=== PATIENT | female | born 1960 | race African-American/Black ===

== ENCOUNTER 2017-08-24 10:42 | Inpatient (IN) ==
[2017-08-24] MEDS ORDERED: INSULIN REGULAR 100 UNIT/ML IV STA (11:26)
[2017-08-24] MEDS ORDERED: SODIUM CHLORIDE 0.9% 1,000 ML IV STA (11:26)
[2017-08-24] MEDS ORDERED: INSULIN REGULAR 100 UNIT/ML ONE (11:29)
[2017-08-24 11:34] LABS: Basophils # 0.1 10*3/uL (0.0-0.2); Basophils % 0.3 % (0.0-0.8); Hemoglobin 16.5 GM/DL (12.0-16.0); Immature Granulocytes % 0.8 %; Immature Granulocytes Absolute 0.18 #; Lymphocytes # 2.5 10*3/uL (1.4-4.0); Lymphocytes % 11.1 % (21.3-54.2); Mean Corpuscular HGB Conc 31.1 GM/DL (32-36); Mean Corpuscular Hemoglobin 29 PG (27-34); Mean Corpuscular Volume 92.5 FL (87-102); Monocytes # 2.3 10*3/uL (0.11-0.8); Neutrophils # 17.8 10*3/uL (1.4-7.4); Neutrophils % 77.8 % (38.7-73.9); Platelet Count 234 T/CUMM (130-400); Red Blood Count 5.73 MC/CUMM (3.8-5.5); Red Cell Distribution Width 12.4 % (9.3-17.3); White Blood Count 22.9 T/CUMM (4-12)
[2017-08-24 11:41] LABS: PT Patient Result 10.8 SECS
[2017-08-24 11:56] LABS: ABG Base Excess -29.1 MMOL/L (-2.5-2.5); ABG HCO3 1.8 MMOL/L (20-26); ABG Oxygen Saturation 98.9 % (95-100); ABG PO2 190.4 MM HG (80-95); ABG TCO2 2.1 MMOL/L (23-27)
[2017-08-24 11:59] LABS: ABG PH 6.926 (7.35-7.45)
[2017-08-24] MEDS ORDERED: SODIUM BICARBONATE 50 MEQ/50 ML VIAL IV STA ×2 (11:59→15:18)
[2017-08-24] MEDS ORDERED: INSULIN REGULAR DRIP 100 ML IV PRN (12:00)
[2017-08-24 12:01] LABS: Band Neutrophils 4 % (0-10); Hypochromasia Slight; Lymphocytes 14 % (20-55); Platelet Estimate Adequate; Segmented Neutrophils 72 % (50-85); Total Cells Counted 100
[2017-08-24 12:07] LABS: Alanine Aminotransferase 27 U/L (13-56); Albumin 3.6 G/DL (3.4-5.0); Alkaline Phosphatase 235 U/L (45-117); Aspartate Amino Transferase 33 U/L (0-37); Blood Urea Nitrogen 26 MG/DL (7-18); CKMB % 9.4 %; Calcium 9.9 MG/DL (8.5-10.1); Osmolality,Calculated 287.1 MOS/KG (273-304); Potassium 5.2 MMOL/L (3.5-5.1); Sodium 128 MMOL/L (136-145); Thyroid Stimulating Hormone < 0.005 uIU/ml (0.358-3.74); Total Protein 8.1 G/DL (6.4-8.3)
[2017-08-24] MEDS ORDERED: SODIUM BICARBONATE 50 MEQ/50 ML SYRINGE IV ONE ×2 (12:09→15:37)
[2017-08-24 12:12] LABS: Glucose 575 MG/DL (74-106)
[2017-08-24 12:16] LABS: Barbiturates Screen,Urine Negative (Negative); Benzodiazepines Screen,Urine Negative (Negative); Cannabinoid Screen,Urine Negative (Negative); Opiate Screen,Urine Negative (Negative); Phencyclidine Screen,Urine Negative (Negative)
[2017-08-24 12:24] LABS: Ammonia 131 UMOL/L (11-32)
[2017-08-24 12:30] LABS: Amorphous Crystals,Urine Occasional /HPF (Few); Apearance,Urine CLOUDY (Clear); Bilirubin,Urine Negative (Negative); Blood, Urine Moderate mg/dL (Negative); Glucose,Urine (UA) >=500 mg/dL (Negative); Ketones,Urine 80 mg/dL (Negative); Lactic Acid 2.3 MMOL/L (0.4-2.0); Mucus,Urine Occasional /LPF (Occasional); Nitrite,Urine Negative (Negative); Protein,Urine 100 MG/DL; RBC,Urine 2 /HPF (0-4); Squamous Epithelial Cell,Urine Occasional /HPF (0-10); Urine Color Yellow (Yellow); Urine Specific Gravity 1.012 (1.001-1.035); Urine Urobilinogen < 2.0 EU/DL (0.2-1.0); WBC,Urine 1 /HPF (0-6)
[2017-08-24 12:39] LABS: Sedimentation Rate-Westergren 5 MM/HR (0-30)
[2017-08-24] MEDS ORDERED: ALBUTEROL 2.5 MG/3 ML NEB RESP TX PRN (13:16)
[2017-08-24] MEDS ORDERED: SODIUM PHOSPHATE INJ 13.6 MMOL in SODIUM CHLORIDE 0.9% 250 ML IV PRN (13:25)
[2017-08-24] MEDS ORDERED: SODIUM BICARB INJ 100 MEQ in STERILE WATER INJ 400 ML IV PRN (13:25)
[2017-08-24] MEDS ORDERED: DEXTROSE 50% 25 GM/50 ML VIAL IV PRN ×2 (13:25)
[2017-08-24] MEDS ORDERED: LACTULOSE 160 GM/240 ML BOTTLE RECTAL ONE (14:29)
[2017-08-24 14:33] LABS: Calcium 8.9 MG/DL (8.5-10.1)
[2017-08-24] MEDS: PANTOPRAZOLE 40 MG VIAL IV SCH (15:00)
[2017-08-24] MEDS: INSULIN REGULAR DRIP 100 ML IV SCH ×2 (15:03→21:23)
[2017-08-24 15:13] LABS: ABG Base Excess -27.5 MMOL/L (-2.5-2.5); ABG HCO3 7.1 MMOL/L (20-26); ABG Oxygen Saturation 98.3 % (95-100)
[2017-08-24 15:15] LABS: ABG PCO2 10.8 MM HG (35-48); ABG PH 7.078 (7.35-7.45); ABG TCO2 2.9 MMOL/L (23-27)
[2017-08-24] MEDS ORDERED: LACTULOSE 20 GM/30 ML UDCUP PO STA (15:19)
[2017-08-24] MEDS ORDERED: DILTIAZEM 100 MG VIAL.ADD IV ONE (15:49)
[2017-08-24] MEDS: DILTIAZEM INJ 100 MG in SODIUM CHLORIDE 0.9% 100 ML IV SCH (16:07)
[2017-08-24] MEDS ORDERED: DILTIAZEM 50 MG/10 ML VIAL IV STA (16:10)
[2017-08-24 17:51] LABS: ABG Base Excess -21.8 MMOL/L (-2.5-2.5); ABG HCO3 9.6 MMOL/L (20-26); ABG Oxygen Saturation 98.7 % (95-100); ABG PH 7.264 (7.35-7.45)
[2017-08-24 18:04] LABS: Calcium 8.5 MG/DL (8.5-10.1); Osmolality,Calculated 298.4 MOS/KG (273-304); Potassium 3.6 MMOL/L (3.5-5.1)
[2017-08-24 18:18] LABS: CKMB % 8.3 %; Troponin I Only 0.115 NG/ML (0.00-0.045)
[2017-08-24 19:45] LABS: ABG Base Excess -20.6 MMOL/L (-2.5-2.5); ABG HCO3 10.2 MMOL/L (20-26); ABG Oxygen Saturation 98.7 % (95-100); ABG PH 7.295 (7.35-7.45); ABG TCO2 4.4 MMOL/L (23-27); Allen Test Positive; Pt O2 Delivery Device Room Air
[2017-08-24 19:48] LABS: ABG PCO2 10.3 MM HG (35-48)
[2017-08-24] MEDS: SODIUM CHLORIDE 0.45% 1,000 ML IV SCH ×2 (21:45→23:09)
[2017-08-24 22:15] LABS: Osmolality,Calculated 296.3 MOS/KG (273-304); Potassium 3.4 MMOL/L (3.5-5.1)
[2017-08-25] MEDS: DEXTROSE 5% NACL 0.45% 1,000 ML IV SCH ×2 (00:26→07:38)
[2017-08-25] MEDS: POTASSIUM CHLORIDE RIDER 10 MEQ in PREMIX 1 EACH IV PRN ×3 (00:28→04:15)
[2017-08-25 00:49] LABS: CKMB % 9.4 %
[2017-08-25 00:52] LABS: Troponin I Only 0.106 NG/ML (0.00-0.045)
[2017-08-25] MEDS ORDERED: ACETAMINOPHEN 650 MG SUPP RECTAL PRN (04:33)
[2017-08-25 05:18] LABS: Calcium 9.2 MG/DL (8.5-10.1); Osmolality,Calculated 295.1 MOS/KG (273-304); Potassium 3.3 MMOL/L (3.5-5.1)
[2017-08-25 05:26] LABS: Lactic Acid 1.6 MMOL/L (0.4-2.0)
[2017-08-25 06:15] LABS: Basophils % 0.1 % (0.0-0.8); Hematocrit 39.6 VOL% (35.7-47.0); Hemoglobin 13.8 GM/DL (12.0-16.0); Immature Granulocytes % 0.3 %; Immature Granulocytes Absolute 0.03 #; Lymphocytes # 1.2 10*3/uL (1.4-4.0); Lymphocytes % 13.6 % (21.3-54.2); Mean Corpuscular HGB Conc 34.8 GM/DL (32-36); Mean Corpuscular Hemoglobin 29 PG (27-34); Mean Corpuscular Volume 81.8 FL (87-102); Mean Platelet Volume 11.4 FL (9.6-12.0); Monocytes # 1.4 10*3/uL (0.11-0.8); Monocytes % 15.2 % (1.7-12.7); Neutrophils # 6.5 10*3/uL (1.4-7.4); Neutrophils % 70.8 % (38.7-73.9); Platelet Count 132 T/CUMM (130-400); Red Blood Count 4.84 MC/CUMM (3.8-5.5); Red Cell Distribution Width 12.8 % (9.3-17.3); White Blood Count 9.1 T/CUMM (4-12)
[2017-08-25] MEDS ORDERED: SODIUM CHLORIDE 0.45% 1,000 ML IV SCH (06:25)
[2017-08-25 11:21] LABS: Calcium 9.1 MG/DL (8.5-10.1); Potassium 3.4 MMOL/L (3.5-5.1)
[2017-08-25] MEDS: SODIUM CHLORIDE 0.9% 1,000 ML IV SCH ×2 (11:47→20:13)
[2017-08-25] MEDS: POTASSIUM CHLORIDE 20 MEQ TABLET PO PRN ×3 (11:52→16:39)
[2017-08-25] MEDS: INSULIN REGULAR 100 UNIT/ML SUBCUT SCH ×3 (12:28→23:52)
[2017-08-25 12:46] LABS: Free T4 (Free Thyroxine) 4.49 NG/DL (0.76-1.46); Thyroid Stimulating Hormone < 0.005 uIU/ml (0.358-3.74)
[2017-08-25] MEDS: METOPROLOL SUCCINATE XL 25 MG TABLET PO SCH (13:35)
[2017-08-25] MEDS: PANTOPRAZOLE 40 MG VIAL IV SCH (13:36)
[2017-08-25 16:50] LABS: Calcium 9.4 MG/DL (8.5-10.1); Osmolality,Calculated 292.1 MOS/KG (273-304); Potassium 3.6 MMOL/L (3.5-5.1)
[2017-08-25] MEDS: DILTIAZEM INJ 100 MG in SODIUM CHLORIDE 0.9% 100 ML IV SCH (17:41)
[2017-08-26 01:24] LABS: Calcium 9.8 MG/DL (8.5-10.1); Osmolality,Calculated 295.7 MOS/KG (273-304)
[2017-08-26] MEDS: SODIUM CHLORIDE 0.9% 1,000 ML IV SCH ×3 (03:31→20:56)
[2017-08-26] MEDS: INSULIN REGULAR 100 UNIT/ML SUBCUT SCH ×3 (05:58→18:18)
[2017-08-26 07:43] LABS: Basophils % 0.2 % (0.0-0.8); Hematocrit 32.9 VOL% (35.7-47.0); Immature Granulocytes % 0.2 %; Immature Granulocytes Absolute 0.01 #; Mean Platelet Volume 11.2 FL (9.6-12.0)
[2017-08-26 07:45] LABS: Lymphocytes # 2.3 10*3/uL (1.4-4.0); Lymphocytes % 40.2 % (21.3-54.2); Mean Corpuscular Hemoglobin 29 PG (27-34); Mean Corpuscular Volume 83.9 FL (87-102); Monocytes # 0.9 10*3/uL (0.11-0.8); Monocytes % 15.2 % (1.7-12.7); Neutrophils # 2.5 10*3/uL (1.4-7.4); Neutrophils % 44.2 % (38.7-73.9); Platelet Count 107 T/CUMM (130-400); Red Blood Count 3.92 MC/CUMM (3.8-5.5); Red Cell Distribution Width 13.7 % (9.3-17.3)
[2017-08-26 07:47] LABS: Hemoglobin 11.2 GM/DL (12.0-16.0); White Blood Count 5.7 T/CUMM (4-12)
[2017-08-26 08:13] LABS: Calcium 9.7 MG/DL (8.5-10.1); Osmolality,Calculated 292.6 MOS/KG (273-304); Potassium 3.1 MMOL/L (3.5-5.1)
[2017-08-26] MEDS: METOPROLOL SUCCINATE XL 25 MG TABLET PO SCH (10:51)
[2017-08-26] MEDS: PANTOPRAZOLE 40 MG VIAL IV SCH (15:03)
[2017-08-26] MEDS ORDERED: GLUCAGON 1 MG VIAL IM PRN (17:19)
[2017-08-26] MEDS: APIXABAN 5 MG TABLET PO SCH ×2 (18:18→20:53)
[2017-08-26] MEDS: IBUPROFEN 800 MG TABLET PO PRN (21:05)
[2017-08-26] MEDS: POTASSIUM CHLORIDE 20 MEQ TABLET PO PRN (22:25)
[2017-08-27] MEDS: INSULIN REGULAR 100 UNIT/ML SUBCUT SCH ×4 (00:01→18:19)
[2017-08-27] MEDS: POTASSIUM CHLORIDE 20 MEQ TABLET PO PRN ×3 (01:15→06:19)
[2017-08-27 04:22] LABS: Hematocrit 29.6 VOL% (35.7-47.0); Hemoglobin 10.2 GM/DL (12.0-16.0); Immature Granulocytes % 0.2 %; Immature Granulocytes Absolute 0.01 #; Lymphocytes # 2.7 10*3/uL (1.4-4.0); Lymphocytes % 58.8 % (21.3-54.2); Mean Corpuscular HGB Conc 34.5 GM/DL (32-36); Mean Corpuscular Hemoglobin 29 PG (27-34); Mean Corpuscular Volume 83.9 FL (87-102); Mean Platelet Volume 12.2 FL (9.6-12.0); Monocytes # 0.7 10*3/uL (0.11-0.8); Monocytes % 14.1 % (1.7-12.7); Neutrophils # 1.2 10*3/uL (1.4-7.4); Neutrophils % 26.9 % (38.7-73.9); Red Blood Count 3.53 MC/CUMM (3.8-5.5); Red Cell Distribution Width 13.7 % (9.3-17.3); White Blood Count 4.6 T/CUMM (4-12)
[2017-08-27 04:28] LABS: Platelet Count 98 T/CUMM (130-400)
[2017-08-27 04:39] LABS: Calcium 8.5 MG/DL (8.5-10.1); Potassium 3.4 MMOL/L (3.5-5.1)
[2017-08-27 05:03] LABS: Band Neutrophils 1 % (0-10); Hypochromasia 1+; Lymphocytes 56 % (20-55); Platelet Estimate Decreased; Segmented Neutrophils 31 % (50-85); Total Cells Counted 100
[2017-08-27] MEDS: SODIUM CHLORIDE 0.9% 1,000 ML IV SCH ×4 (06:18→21:09)
[2017-08-27] MEDS: APIXABAN 5 MG TABLET PO SCH ×2 (09:46→21:10)
[2017-08-27] MEDS: METOPROLOL SUCCINATE XL 25 MG TABLET PO SCH (09:46)
[2017-08-27] MEDS: PANTOPRAZOLE 40 MG VIAL IV SCH (16:51)
[2017-08-28] MEDS: INSULIN REGULAR 100 UNIT/ML SUBCUT SCH ×3 (01:07→11:38)
[2017-08-28] MEDS: SODIUM CHLORIDE 0.9% 1,000 ML IV SCH (06:07)
[2017-08-28 06:23] LABS: Hemoglobin 11.7 GM/DL (12.0-16.0); Lymphocytes # 2.9 10*3/uL (1.4-4.0); Lymphocytes % 65.2 % (21.3-54.2); Mean Corpuscular HGB Conc 33.4 GM/DL (32-36); Mean Corpuscular Hemoglobin 28 PG (27-34); Mean Corpuscular Volume 84.7 FL (87-102); Mean Platelet Volume 12.4 FL (9.6-12.0); Monocytes # 0.6 10*3/uL (0.11-0.8); Monocytes % 12.5 % (1.7-12.7); Neutrophils % 22.3 % (38.7-73.9); Platelet Count 103 T/CUMM (130-400); Red Blood Count 4.13 MC/CUMM (3.8-5.5); Red Cell Distribution Width 13.7 % (9.3-17.3); White Blood Count 4.4 T/CUMM (4-12)
[2017-08-28 06:53] LABS: Lymphocytes 67 % (20-55); Platelet Estimate Decreased; Segmented Neutrophils 30 % (50-85); Total Cells Counted 100
[2017-08-28 06:56] LABS: Calcium 9.2 MG/DL (8.5-10.1); Osmolality,Calculated 291.7 MOS/KG (273-304); Potassium 3.3 MMOL/L (3.5-5.1)
[2017-08-28 07:00] LABS: Alanine Aminotransferase 23 U/L (13-56); Albumin 2.6 G/DL (3.4-5.0); Alkaline Phosphatase 126 U/L (45-117); Aspartate Amino Transferase 23 U/L (0-37); Bilirubin,Direct < 0.100 MG/DL (0.0-0.20); Bilirubin,Indirect 0.4 MG/DL (0.0-1.0); Total Protein 5.7 G/DL (6.4-8.3)
[2017-08-28] MEDS: METOPROLOL SUCCINATE XL 25 MG TABLET PO SCH (08:33)
[2017-08-28] MEDS: APIXABAN 5 MG TABLET PO SCH (08:33)
[2017-08-28] MEDS: POTASSIUM CHLORIDE 20 MEQ TABLET PO PRN ×3 (08:33→12:37)
[2017-08-28] MEDS: IBUPROFEN 800 MG TABLET PO PRN (09:42)
[2017-08-28 11:36] VITALS: BP 97/65
[2017-08-28] MEDS: PANTOPRAZOLE 40 MG VIAL IV SCH (12:37)
== END 2017-08-28 13:10 | disposition home or self-care (01) | DRG 637 ==
LOC: N.ED 10:42 → N.EDINP 12:19 → N.CC 20:58 → N.2E 08-27 17:47

== ENCOUNTER 2018-03-26 10:15 | Observation (INO) ==
[2018-03-26 11:31] LABS: Basophils % 0.2 % (0.0-0.8); Hematocrit 41.6 VOL% (35.7-47.0); Hemoglobin 13.7 GM/DL (12.0-16.0); Immature Granulocytes % 0.2 %; Immature Granulocytes Absolute 0.01 #; Lymphocytes # 2.1 10*3/uL (1.4-4.0); Lymphocytes % 41.9 % (21.3-54.2); Mean Corpuscular HGB Conc 32.9 GM/DL (32-36); Mean Corpuscular Hemoglobin 30 PG (27-34); Mean Corpuscular Volume 90.4 FL (87-102); Mean Platelet Volume 12.2 FL (9.6-12.0); Monocytes # 0.5 10*3/uL (0.11-0.8); Monocytes % 10.5 % (1.7-12.7); Neutrophils # 2.4 10*3/uL (1.4-7.4); Neutrophils % 47.2 % (38.7-73.9); Platelet Count 167 T/CUMM (130-400); White Blood Count 5.1 T/CUMM (4-12)
[2018-03-26] MEDS ORDERED: SODIUM CHLORIDE 0.9% 1,000 ML IV STA (11:52)
[2018-03-26] MEDS ORDERED: ONDANSETRON 4 MG/2 ML VIAL IV STA (11:52)
[2018-03-26 11:54] LABS: Alanine Aminotransferase 33 U/L (13-56); Albumin 3.2 G/DL (3.4-5.0); Alkaline Phosphatase 181 U/L (45-117); Aspartate Amino Transferase 23 U/L (0-37); Bilirubin,Total < 0.39 MG/DL (0.2-1.0); Blood Urea Nitrogen 14 MG/DL (7-18); Calcium 8.2 MG/DL (8.5-10.1); Osmolality,Calculated 287.7 MOS/KG (273-304); Sodium 131 MMOL/L (136-145); Total Protein 6.6 G/DL (6.4-8.3)
[2018-03-26 11:56] LABS: Glucose 542 MG/DL (74-106)
[2018-03-26] MEDS ORDERED: INSULIN REGULAR 100 UNIT/ML IV STA (11:56)
[2018-03-26 12:03] LABS: Basophils % 0.2 % (0.0-0.8); Hematocrit 41.5 VOL% (35.7-47.0); Hemoglobin 13.5 GM/DL (12.0-16.0); Immature Granulocytes % 0.2 %; Immature Granulocytes Absolute 0.01 #; Lymphocytes # 2.1 10*3/uL (1.4-4.0); Lymphocytes % 41.8 % (21.3-54.2); Mean Corpuscular HGB Conc 32.5 GM/DL (32-36); Mean Corpuscular Hemoglobin 30 PG (27-34); Mean Corpuscular Volume 90.8 FL (87-102); Mean Platelet Volume 12.4 FL (9.6-12.0); Monocytes # 0.5 10*3/uL (0.11-0.8); Monocytes % 10.6 % (1.7-12.7); Neutrophils # 2.4 10*3/uL (1.4-7.4); Neutrophils % 47.2 % (38.7-73.9); Platelet Count 171 T/CUMM (130-400); Red Blood Count 4.57 MC/CUMM (3.8-5.5); Red Cell Distribution Width 13.2 % (9.3-17.3)
[2018-03-26 12:26] LABS: Apearance,Urine CLEAR (Clear); Bilirubin,Urine Negative (Negative); Blood, Urine Negative (Negative); Glucose,Urine (UA) >=500 mg/dL (Negative); Ketones,Urine 20 mg/dL (Negative); Mucus,Urine Occasional /LPF (Occasional); Nitrite,Urine Negative (Negative); Protein,Urine Negative; RBC,Urine <1 /HPF (0-4); Urine Color Straw (Yellow); Urine Specific Gravity 1.032 (1.001-1.035); Urine Urobilinogen < 2.0 EU/DL (0.2-1.0)
[2018-03-26 12:34] LABS: ABG Base Excess -0.4 MMOL/L (-2.5-2.5); ABG HCO3 24.1 MMOL/L (20-26); ABG PCO2 35.8 MM HG (35-48); ABG PH 7.425 (7.35-7.45); ABG PO2 97.8 MM HG (80-95); ABG TCO2 20.5 MMOL/L (23-27); Allen Test Positive; Pt O2 Delivery Device Room Air
[2018-03-26] MEDS ORDERED: ACETAMINOPHEN 325 MG TABLET PO PRN (12:42)
[2018-03-26] MEDS ORDERED: ONDANSETRON 4 MG/2 ML VIAL IV PRN (12:42)
[2018-03-26] MEDS ORDERED: DEXTROSE 50% 25 GM/50 ML VIAL IV PRN (12:42)
[2018-03-26] MEDS ORDERED: GLUCAGON 1 MG VIAL IM PRN (12:42)
[2018-03-26 12:55] LABS: Barbiturates Screen,Urine Negative (Negative); Benzodiazepines Screen,Urine Negative (Negative); Cannabinoid Screen,Urine Negative (Negative); Opiate Screen,Urine Negative (Negative); Phencyclidine Screen,Urine Negative (Negative)
[2018-03-26] MEDS ORDERED: SODIUM CHLORIDE 0.9% 1,000 ML IV SCH (13:00)
[2018-03-26] MEDS ORDERED: INFLUENZA VIRUS VACCINE 0.5 ML SYRINGE IM ONE (15:18)
[2018-03-26] MEDS ORDERED: PNEUMOCOCCAL VACCINE (23 VALENT) 0.5 ML VIAL IM ONE (15:18)
[2018-03-26] MEDS: INSULIN REGULAR 100 UNIT/ML SUBCUT SCH ×3 (15:21→21:37)
[2018-03-26] MEDS ORDERED: INSULIN NPH/REGULAR 70/30 100 UNIT/ML SUBCUT SCH (17:30)
[2018-03-26] MEDS: SODIUM CHLORIDE 0.9% 1,000 ML IV SCH (17:51)
[2018-03-27] MEDS: INSULIN REGULAR 100 UNIT/ML SUBCUT SCH ×4 (01:15→13:47)
[2018-03-27] MEDS: SODIUM CHLORIDE 0.9% 1,000 ML IV SCH (01:18)
[2018-03-27 05:46] LABS: Basophils % 0.1 % (0.0-0.8); Hematocrit 37.2 VOL% (35.7-47.0); Hemoglobin 11.9 GM/DL (12.0-16.0); Immature Granulocytes % 0.3 %; Immature Granulocytes Absolute 0.02 #; Lymphocytes # 3.8 10*3/uL (1.4-4.0); Lymphocytes % 54.8 % (21.3-54.2); Mean Corpuscular Hemoglobin 29 PG (27-34); Mean Corpuscular Volume 91.2 FL (87-102); Mean Platelet Volume 12.1 FL (9.6-12.0); Monocytes # 0.7 10*3/uL (0.11-0.8); Monocytes % 9.6 % (1.7-12.7); Neutrophils # 2.4 10*3/uL (1.4-7.4); Neutrophils % 35.2 % (38.7-73.9); Platelet Count 140 T/CUMM (130-400); Red Blood Count 4.08 MC/CUMM (3.8-5.5); Red Cell Distribution Width 13.2 % (9.3-17.3); White Blood Count 6.9 T/CUMM (4-12)
[2018-03-27 06:06] LABS: Calcium 8.2 MG/DL (8.5-10.1); Osmolality,Calculated 280.5 MOS/KG (273-304); Potassium 3.6 MMOL/L (3.5-5.1)
[2018-03-27 06:16] LABS: Eosinophils 3 % (0-10); Lymphocytes 49 % (20-55); Segmented Neutrophils 41 % (50-85); Total Cells Counted 100
[2018-03-27 06:17] LABS: Hypochromasia 2+; Platelet Estimate Decreased
[2018-03-27] MEDS ORDERED: INSULIN NPH/REGULAR 70/30 100 UNIT/ML SUBCUT SCH (07:30)
[2018-03-27] MEDS ORDERED: PANTOPRAZOLE 40 MG TABLET PO SCH (09:00)
[2018-03-27] MEDS: METOPROLOL SUCCINATE XL 25 MG TABLET PO SCH ×2 (10:02→14:04)
[2018-03-27 12:59] VITALS: BP 157/77
[2018-03-27 14:38] LABS: Apearance,Urine CLEAR (Clear); Bilirubin,Urine Negative (Negative); Blood, Urine Negative (Negative); Glucose,Urine (UA) 50 mg/dL (Negative); Hyaline Casts,Urine 1 /LPF (0-3); Ketones,Urine Negative (Negative); Mucus,Urine Occasional /LPF (Occasional); Nitrite,Urine Negative (Negative); Protein,Urine 30 MG/DL; RBC,Urine 2 /HPF (0-4); Squamous Epithelial Cell,Urine Occasional /HPF (0-10); Urine Color Yellow (Yellow); Urine Specific Gravity 1.014 (1.001-1.035); Urine Urobilinogen < 2.0 EU/DL (0.2-1.0); WBC,Urine 3 /HPF (0-6)
[2018-03-27] MEDS ORDERED: LISINOPRIL 5 MG TABLET PO SCH (16:00)
[2018-03-27] MEDS ORDERED: INSULIN GLARGINE 100 UNIT/ML SUBCUT ONE (17:11)
== END 2018-03-27 15:30 | disposition home or self-care (01) ==
LOC: N.ED 10:15 → N.EDINP 10:15 → N.SDSINP 14:18 → N.4E 14:18
PROVIDERS: ADMIT Hospitalist; ATTEND Hospitalist

== ENCOUNTER 2018-05-27 09:26 | Observation (INO) ==
[2018-05-27] MEDS ORDERED: SODIUM CHLORIDE 0.9% 1,000 ML IV STA ×2 (10:45→13:25)
[2018-05-27 11:06] LABS: Basophils % 0.2 % (0.0-0.8); Hematocrit 39.5 VOL% (35.7-47.0); Hemoglobin 12.8 GM/DL (12.0-16.0); Immature Granulocytes % 0.2 %; Immature Granulocytes Absolute 0.01 #; Lymphocytes # 2.9 10*3/uL (1.4-4.0); Lymphocytes % 54.7 % (21.3-54.2); Mean Corpuscular HGB Conc 32.4 GM/DL (32-36); Mean Platelet Volume 10.9 FL (9.6-12.0); Monocytes % 10.9 % (1.7-12.7); Platelet Count 194 T/CUMM (130-400); Red Blood Count 4.44 MC/CUMM (3.8-5.5); Red Cell Distribution Width 13.2 % (9.3-17.3); White Blood Count 5.3 T/CUMM (4-12)
[2018-05-27 11:25] LABS: Calcium 8.9 MG/DL (8.5-10.1); Osmolality,Calculated 282.8 MOS/KG (273-304)
[2018-05-27 11:27] LABS: Atypical Lymphocytes Few; Hypochromasia 1+; Lymphocytes 65 % (20-55); Platelet Estimate Adequate; Segmented Neutrophils 27 % (50-85); Total Cells Counted 100
[2018-05-27 11:37] LABS: Apearance,Urine CLEAR (Clear); Bilirubin,Urine Negative (Negative); Blood, Urine Negative (Negative); Glucose,Urine (UA) >=500 mg/dL (Negative); Hyaline Casts,Urine 1 /LPF (0-3); Ketones,Urine Negative (Negative); Nitrite,Urine Negative (Negative); Protein,Urine Negative; RBC,Urine <1 /HPF (0-4); Urine Color Straw (Yellow); Urine Specific Gravity 1.036 (1.001-1.035); Urine Urobilinogen < 2.0 EU/DL (0.2-1.0); WBC,Urine <1 /HPF (0-6)
[2018-05-27] MEDS ORDERED: INSULIN REGULAR 100 UNIT/ML IV STA (12:46)
[2018-05-27] MEDS ORDERED: GLUCAGON 1 MG VIAL IM PRN (14:38)
[2018-05-27] MEDS ORDERED: ACETAMINOPHEN 325 MG TABLET PO PRN (14:38)
[2018-05-27] MEDS ORDERED: DEXTROSE 50% 25 GM/50 ML VIAL IV PRN (14:38)
[2018-05-27] MEDS ORDERED: ONDANSETRON 4 MG/2 ML VIAL IV PRN (14:38)
[2018-05-27] MEDS ORDERED: IBUPROFEN 600 MG TABLET PO PRN (14:45)
[2018-05-27] MEDS ORDERED: DEXTROSE 5% NACL 0.45% 1,000 ML IV SCH ×3 (15:00)
[2018-05-27] MEDS ORDERED: ENOXAPARIN 40 MG/0.4 ML SYRINGE SUBCUT SCH (15:00)
[2018-05-27] MEDS ORDERED: INSULIN REGULAR 100 UNIT/ML SUBCUT STA (18:25)
[2018-05-27] MEDS: INSULIN REGULAR 100 UNIT/ML SUBCUT SCH ×2 (18:30→23:05)
[2018-05-27] MEDS: SODIUM CHLORIDE 0.9% 1,000 ML IV SCH (20:05)
[2018-05-27] MEDS: INSULIN NPH/REGULAR 70/30 100 UNIT/ML SUBCUT SCH (21:37)
[2018-05-28] MEDS: INSULIN REGULAR 100 UNIT/ML SUBCUT SCH ×3 (03:02→10:26)
[2018-05-28] MEDS: SODIUM CHLORIDE 0.9% 1,000 ML IV SCH (04:08)
[2018-05-28 04:45] LABS: Calcium 7.7 MG/DL (8.5-10.1); Osmolality,Calculated 281.3 MOS/KG (273-304)
[2018-05-28] MEDS ORDERED: GLIMEPIRIDE 4 MG TABLET PO SCH (08:00)
[2018-05-28 08:06] VITALS: BP 120/70
[2018-05-28] MEDS: INSULIN NPH/REGULAR 70/30 100 UNIT/ML SUBCUT SCH (08:45)
[2018-05-28] MEDS ORDERED: PANTOPRAZOLE 40 MG TABLET PO SCH (09:00)
[2018-05-28] MEDS ORDERED: METOPROLOL SUCCINATE XL 25 MG TABLET PO SCH (09:00)
[2018-05-28] MEDS ORDERED: LISINOPRIL 5 MG TABLET PO SCH (09:00)
== END 2018-05-28 12:09 | disposition home or self-care (01) ==
LOC: N.EDINP 09:26 → N.ED 09:26 → N.2E 19:27
PROVIDERS: ADMIT Internal Medicine; ATTEND Internal Medicine

== ENCOUNTER 2019-06-14 23:05 | Observation (INO) ==
[2019-06-14] MEDS ORDERED: ceFAZolin 1,000 MG VIAL ONE (23:18)
[2019-06-14] MEDS ORDERED: DIPH/TET/ACEL PERT BOOSTER VACCINE 0.5 ML VIAL IM ONE (23:19)
[2019-06-14] MEDS ORDERED: SODIUM CHLORIDE 0.9% 1,000 ML IV STA (23:19)
[2019-06-14] MEDS ORDERED: SODIUM CHLORIDE 0.9% 100 ML IV ONE (23:19)
[2019-06-14 23:30] LABS: Basophils % 0.1 % (0.0-0.8); Hemoglobin 14.1 GM/DL (12.0-16.0); Immature Granulocytes % 0.3 %; Immature Granulocytes Absolute 0.02 #; Lymphocytes # 4.5 10*3/uL (1.4-4.0); Mean Corpuscular HGB Conc 32.8 GM/DL (32-36); Mean Corpuscular Volume 91.1 FL (87-102); Mean Platelet Volume 11.4 FL (9.6-12.0); Monocytes % 8.1 % (1.7-12.7); Neutrophils % 32.5 % (38.7-73.9); Platelet Count 258 T/CUMM (130-400); Red Blood Count 4.72 MC/CUMM (3.8-5.5); White Blood Count 7.5 T/CUMM (4-12)
[2019-06-14 23:38] LABS: ABG Base Excess -3.1 MMOL/L (-2.5-2.5); ABG HCO3 21.9 MMOL/L (20-26); ABG Oxygen Saturation 99.2 % (95-100); ABG PH 7.536 (7.35-7.45); ABG TCO2 14.7 MMOL/L (23-27)
[2019-06-14 23:40] LABS: ABG PCO2 20.4 MM HG (35-48)
[2019-06-14 23:44] LABS: PT Patient Result 10.5 SECS (9.8-11.9); Partial Thromboplastin Time 22.7 SECS (23.9-33.8)
[2019-06-14 23:49] LABS: Alanine Aminotransferase 19 U/L (13-56); Albumin 3.5 G/DL (3.4-5.0); Alkaline Phosphatase 100 U/L (45-117); Amylase 58 U/L (25-115); Aspartate Amino Transferase 21 U/L (0-37); Blood Urea Nitrogen 16 MG/DL (7-18); Calcium 9.4 MG/DL (8.5-10.1); Estimated Glom Filtration Rate 63 ML/MIN; Glucose 446 MG/DL (74-106); Osmolality,Calculated 277.9 MOS/KG (273-304); Troponin I < 0.015 NG/ML (0.00-0.045)
[2019-06-14] MEDS ORDERED: INSULIN REGULAR 100 UNIT/ML IV STA (23:51)
[2019-06-15] MEDS ORDERED: ONDANSETRON 4 MG/2 ML VIAL IV PRN (00:02)
[2019-06-15] MEDS ORDERED: ACETAMINOPHEN 325 MG TABLET PO PRN (00:02)
[2019-06-15] MEDS ORDERED: GENTAMICIN INJ 120 MG in SODIUM CHLORIDE 0.9% 100 ML IV STA (00:06)
[2019-06-15] MEDS ORDERED: INSULIN REGULAR 100 UNIT/ML IV STA (00:10)
[2019-06-15] MEDS ORDERED: DEXTROSE 10% 250 ML BAG IV PRN (00:11)
[2019-06-15] MEDS ORDERED: GLUCAGON 1 MG VIAL IM PRN (00:11)
[2019-06-15] MEDS ORDERED: LACTATED RINGERS 1,000 ML IV SCH (00:30)
[2019-06-15] MEDS: HYDROmorphone 2 MG/1 ML VIAL IV PRN ×3 (00:46→14:51)
[2019-06-15] MEDS ORDERED: GENTAMICIN INJ 100 ML IV STA (01:42)
[2019-06-15 02:02] LABS: Band Neutrophils 2 % (0-10); Lymphocytes 54 % (20-55); Metamyelocytes 1 %; Platelet Estimate Normal; Reactive Lymphocytes 1+; Segmented Neutrophils 33 % (50-85); Total Cells Counted 100
[2019-06-15 02:05] LABS: Basophils % 0.1 % (0.0-0.8); Hematocrit 41.4 VOL% (35.7-47.0); Hemoglobin 13.6 GM/DL (12.0-16.0); Immature Granulocytes % 0.5 %; Immature Granulocytes Absolute 0.05 #; Lymphocytes # 1.9 10*3/uL (1.4-4.0); Lymphocytes % 17.5 % (21.3-54.2); Mean Corpuscular HGB Conc 32.9 GM/DL (32-36); Mean Corpuscular Volume 91.6 FL (87-102); Mean Platelet Volume 10.7 FL (9.6-12.0); Monocytes % 7.5 % (1.7-12.7); Neutrophils % 74.4 % (38.7-73.9); Platelet Count 210 T/CUMM (130-400); Red Blood Count 4.52 MC/CUMM (3.8-5.5); Red Cell Distribution Width 13.2 % (9.3-17.3)
[2019-06-15 02:19] LABS: Calcium 8.3 MG/DL (8.5-10.1); Osmolality,Calculated 275.5 MOS/KG (273-304)
[2019-06-15] MEDS ORDERED: INSULIN REGULAR 100 UNIT/ML SUBCUT SCH ×2 (06:00→12:00)
[2019-06-15 07:01] LABS: Apearance,Urine CLEAR (Clear); Bacteria,Urine Occasional /HPF (Few); Bilirubin,Urine Negative (Negative); Blood, Urine Negative (Negative); Glucose,Urine (UA) >=500 mg/dL (Negative); Ketones,Urine 20 mg/dL (Negative); Mucus,Urine Occasional /LPF (Occasional); Nitrite,Urine Negative (Negative); Protein,Urine Negative; RBC,Urine <1 /HPF (0-4); Squamous Epithelial Cell,Urine Occasional /HPF (0-10); Urine Color Straw (Yellow); Urine Specific Gravity 1.026 (1.001-1.035); Urine Urobilinogen < 2.0 EU/DL (0.2-1.0); WBC,Urine 2 /HPF (0-6)
[2019-06-15] MEDS ORDERED: DEXTROSE 50% 25 GM/50 ML VIAL IV PRN (07:18)
[2019-06-15] MEDS ORDERED: DEXTROSE 5% LACTATED RINGERS 1,000 ML IV SCH (07:30)
[2019-06-15] MEDS: POTASSIUM CHLORIDE RIDER 10 MEQ in PREMIX 1 EACH IV SCH ×4 (08:27→11:50)
[2019-06-15 08:59] LABS: Barbiturates Screen,Urine Negative (Negative); Benzodiazepines Screen,Urine Negative (Negative); Cannabinoid Screen,Urine Negative (Negative); Opiate Screen,Urine Negative (Negative); Phencyclidine Screen,Urine Negative (Negative)
[2019-06-15] MEDS ORDERED: PANTOPRAZOLE 40 MG TABLET PO SCH (09:00)
[2019-06-15] MEDS: SODIUM CHLORIDE 0.9% IV SCH ×2 (09:43→17:04)
[2019-06-15] MEDS: CEFAZOLIN IV SCH ×2 (09:43→17:04)
[2019-06-15 17:37] VITALS: BP 140/103
== END 2019-06-15 17:45 | disposition home or self-care (01) ==
LOC: EDBD → EDUNIT# → N.ED 23:05 → N.EDINP 23:05 → N.3E 06-15 01:03
PROVIDERS: ADMIT Student in an Organized Health Care Education/Training Program; ATTEND Student in an Organized Health Care Education/Training Program